=== PATIENT | female | born 1980 | race Caucasian/White ===

== ENCOUNTER 2018-07-12 07:47 | Day surgery (SDC) | payer MEDICAID ==
[2018-07-10 12:38] LABS: BASOPHILS % (AUTO) 0.6 % (0-1); EOSINOPHILS # (AUTO) 0.5 X10'3 (0-0.9); EOSINOPHILS % (AUTO) 5.6 % (0-6); LYMPHOCYTES # (AUTO) 2.3 X10'3 (1.1-4.8); LYMPHOCYTES % (AUTO) 28.9 % (21-51); MEAN CORPUSCULAR HEMOGLOBIN 30.1 PG (27.0-31.0); MEAN CORPUSCULAR HGB CONC 33.6 % (33.0-36.5); MEAN CORPUSCULAR VOLUME 89.4 FL (78-98); MEAN PLATELET VOLUME 10.1 FL (7.4-10.4); MONOCYTES # (AUTO) 0.4 X10'3 (0-0.9); MONOCYTES % (AUTO) 4.8 % (2-12); NEUTROPHILS # (AUTO) 4.9 X10'3 (1.8-7.7); NEUTROPHILS % (AUTO) 60.1 % (42-75); PRE OP HEMATOCRIT 37.4 % (35.0-45.0); PRE OP HEMOGLOBIN 12.6 g/dL (12.0-16.0); PRE OP PLATELET COUNT 225 X10'3 (140-440); RED BLOOD COUNT 4.19 X10'6 (4.20-5.60); RED CELL DISTRIBUTION WIDTH 14.4 % (11.5-14.5)
[2018-07-10 12:50] LABS: ALBUMIN 3.7 G/DL (3.4-5.0); ALKALINE PHOSPHATASE 115 IU/L (46-116); BLOOD UREA NITROGEN 17 MG/DL (7-18); CHLORIDE 103 MMOL/L (99-107); CREATININE 0.85 MG/DL (0.40-0.90); HCG SERUM QL NEGATIVE; PRE OP ALT 56 U/L (30-65); PRE OP ANION GAP 8 (8-16); PRE OP AST 41 U/L (10-37); PRE OP BILIRUB, TOTAL 0.2 MG/DL (0.0-1.0); PRE OP GLUCOSE 88 MG/DL (70-104); PRE OP POTASSIUM 4.4 MMOL/L (3.4-5.1); PRE OP SODIUM 138 MMOL/L (135-145); TOTAL PROTEIN 7.5 G/DL (6.4-8.2); eGFR 76 ML/MIN
[~2018-07-12] VITALS: Ht 167.6 cm; Wt 99.7 kg
[2018-07-12] VITALS (10 sets, daily range): BP systolic 105–166; BP diastolic 56–97
[~2018-07-12 07:47] MED LIST: BUPIVAcaine/PF 2.5mg/ml (0.25%) 10ml vial ONE; LORA0.5T PO; SERT50TA PO; cefazolin/dext.iso 2gm/100 ML IV ONE; epiNEPHrine 1 mg/ml inj ONE; famotidine 20mg tablet PO ONE; fentaNYL/PF 50MCG/1 ML 2ML syringe IV PRN; hydrALAZINE 20mg/ml inj. IV PRN; labetalol 20mg/4ml (5mg/ml) syringe IV PRN; morphine 4 MG/ML inj SYRINge IV PRN; ondansetron/PF 4mg/2ml inj IV PRN; ringers solution, lacted 1,000 ML IV SCH
[2018-07-12] MEDS ORDERED: sevoflurane 250ml liquid IH ONE (09:12)
[2018-07-12] MEDS ORDERED: fentaNYL/PF 50MCG/1 ML 2ML syringe ONE (09:15)
[2018-07-12] MEDS ORDERED: midazolam 2 mg/2 ml injection ONE (09:16)
[2018-07-12] MEDS ORDERED: dexamethasone sod phosphate 4mg/ml inj. ONE ×2 (09:17)
[2018-07-12] MEDS ORDERED: LIDOcaine 2% (20mg/ml) 5ml vial ONE (09:17)
[2018-07-12] MEDS ORDERED: propofol inj 20 ML IV ONE (09:17)
[2018-07-12] MEDS ORDERED: ondansetron/PF 4mg/2ml inj ONE (09:17)
[2018-07-12] MEDS ORDERED: rocuronium 10mg/ml inj IV ONE (09:17)
[2018-07-12] MEDS ORDERED: atropine 0.4 mg/ml 20ml vial ONE (09:40)
--- NOTE | 2018-07-12 09:54 | NUR ---
Received from OR via [facility] , accompanied by Anesthesiologist ELVIRA and report given by Anesthesiolgist. PATIENT WITH 20G PIV IN LEFT UE RUNNING LR AT 100. DENIES PAIN. UMBILICAL DRESSING PRESENT AND IS CDI. ONE YAJAIRA PAD IN PLACE. Addendum: 07/12/18 at 1008 by Willard Lemon RN, RN Amended: Links added.
[2018-07-12] MEDS: fentaNYL/PF 50MCG/1 ML 2ML syringe IV PRN ×2 (10:35→10:45)
--- NOTE | 2018-07-12 11:04 | NUR ---
ALL DC CRITERIA HAS BEEN MET. IV OUT WITHOUT ISSUE OR COMPLICATION. DENIES PAIN. . ALL QUESTIONS ANSWERED, PATIENT DRESSED SELF, OUT VIA WHEELCHAIR TO PERSONAL VEHICLE WHERE DAUGHTER DROVE HER HOME. ALL DC CRITERIA HAS BEEN MET AND DRESSING IS CDI. Addendum: 07/12/18 at 1125 by Willard Lemon RN, RN Amended: Links added.
== END 2018-07-12 11:04 | disposition home or self-care (01) ==
LOC: PAS 07:47
PROVIDERS: ATTEND Obstetrics & Gynecology
DX: Z30.2 Encounter for sterilization (principal); E66.9 Obesity, unspecified; Z68.35 Body mass index [BMI] 35.0-35.9, adult; Z90.49 Acquired absence of other specified parts of digestive tract; F41.9 Anxiety disorder, unspecified; Z72.89 Other problems related to lifestyle; Z88.8 Allergy status to other drugs, medicaments and biological substances; M19.90 Unspecified osteoarthritis, unspecified site; Z79.899 Other long term (current) drug therapy
CPT/HCPCS: 36415; 58670; 80053; 84703; 85025; A6258; A6402; J0171; J0461; J0690; J1100; J2001; J2250; J2270; J2405; J2704; J3010; J3490; J7120; A7000